=== PATIENT | male | born 1960 | race Caucasian/White ===

== ENCOUNTER 2017-08-15 14:16 | Emergency (ER) | payer BC ==
[2017-08-15] MEDS ORDERED: Lidocaine 1% 20 ML MDV INJECT ONE (16:03)
[2017-08-15] MEDS ORDERED: ceFAZolin 1 GM Vial IM ONE (16:03)
[2017-08-15] MEDS ORDERED: Diphtheria,Pertussis(Acell),Tetanus Vaccine 0.5 ML SDV IM ONE (16:04)
--- NOTE | 2017-08-15 16:07 | EDM.PDOC ---
ED HPI GENERAL MEDICAL PROBLEM - General Chief Complaint: Laceration Stated Complaint: RIGHT HAND PINKY LAC Time Seen by Provider: 08/15/17 15:45 Source of Information: Reports: Patient History Limitations: Reports: No Limitations - History of Present Illness INITIAL COMMENTS - FREE TEXT/NARRATIVE: Patient is a 57-year-old male presents ED complaining of a laceration to the distal tip of the right fifth finger. This occurred last night approximately 8: 00. Patient was attempting remove a hobble on a cow in with doing so the cow took off causing his finger to get caught in the hobble injuring the distal tip. It appears the distal tip has been pushed out in front of the nail. Pain is localized. Tetanus status up-to-date. He denies any injury to remaining fingers, hand, wrist. He offers no additional complaints. He is a type II diabetic with uncontrolled blood sugars. - Related Data Allergies Allergy/AdvReac Type Severity Reaction Status Date / Time No Known Allergies Allergy Verified 08/15/17 14:38 Home Meds: Home Meds . [Unable to Verify Home Med List] 08/15/17 [History] Past Medical History Cardiovascular History: Reports: High Cholesterol Endocrine/Metabolic History: Reports: Diabetes, Type II Social & Family History - Family History Family Medical History: Noncontributory - Tobacco Use Smoking Status *Q: Never Smoker - Alcohol Use Days Per Week of Alcohol Use: 7 Number of Drinks Per Day: 2 Total Drinks Per Week: 14 - Recreational Drug Use Recreational Drug Use: No ED ROS GENERAL - Review of Systems Review Of Systems: ROS reveals no pertinent complaints other than HPI. ED EXAM, SKIN/RASH Exam: See Below Exam Limited By: No Limitations General Appearance: Alert, WD/WN, No Apparent Distress Ears: Hearing Grossly Normal Nose: Normal Inspection Throat/Mouth: Normal Voice, No Airway Compromise Neck: Normal Inspection, Supple Respiratory/Chest: No Respiratory Distress, No Accessory Muscle Use Cardiovascular: Normal Peripheral Pulses, Regular Rate, Rhythm Peripheral Pulses: 4+: Radial (R) Extremities: Other (Fingers been soaking for the past 1.5 hours. Pale to the distal tip with macerated skin. Nailbed is intact. Portion of the soft tissue on the palmar side is protruding out from the nailbed. It appears the soft tissue has avulsed from the palmar aspect. He has full flexion-extension of all joints. No sensory deficits.) Neurological: Alert, Oriented, CN II-XII Intact, Normal Cognition, No Motor/ Sensory Deficits Psychiatric: Normal Affect, Normal Mood ED SKIN PROCEDURES - Laceration/Wound Repair Right Finger Lac/Wound length In cm: 7 Appearance: Subcutaneous, Mildly Contaminated Distal NVT: Neuro & Vascular Intact, No Tendon Injury Anesthetic Type: Digital Local Anesthesia - Lidocaine (Xylocaine): 1% Plain Local Anesthetic Volume: Other (8) Skin Prep: Chlorhexidine (Hibiciens), Saline, Sterile Drape Saline Irrigation (cc's): 25 Exploration/Debridement/Repair: Wound Explored, In a Bloodless Field, Explored to Base, Moderate Debridement, Foreign Material Removed, Wound Margins Revised, Multiple Flaps Aligned Closed with: Sutures Suture Size: other (4.0 and 5.0 sutures) # of Sutures: 10 Suture Type: Prolene, Interrupted, Simple Drain Placement: No Sterile Dressing Applied: Nurse Tetanus Status Addressed: Yes Complications: No Course - Vital Signs Last Recorded V/S: Last Vital Signs Temp 98.3 F 08/15/17 14:35 Pulse 85 08/15/17 14:35 Resp 16 08/15/17 14:35 BP 138/65 08/15/17 14:35 Pulse Ox 96 08/15/17 14:35 - Orders/Labs/Meds Orders: Active Orders 24 hr Category Date Time Status Vaccines to be Administered [RC] PER UNIT ROUTINE Care 08/15/17 16:04 Active Meds: Medications Discontinued Medications Generic Name Dose Route Start Last Admin Trade Name Freq PRN Reason Stop Dose Admin Cefazolin Sodium 1 gm 08/15/17 16:03 08/15/17 16:21 Ancef IM 08/15/17 16:04 1 gm ONETIME ONE Administration Diphtheria/Tetanus/Acell Pertussis 0.5 ml 08/15/17 16:04 08/15/17 16:27 Adacel IM 08/15/17 16:05 0.5 ml .ONCE ONE Administration Doxycycline Hyclate 100 mg 08/15/17 16:31 08/15/17 17:14 Vibramycin PO 08/15/17 16:32 100 mg ONETIME ONE Administration Lidocaine HCl 20 ml 08/15/17 16:03 Xylocaine 1% INJECT 08/15/17 16:04 ONETIME ONE Lidocaine HCl Confirm 08/15/17 17:08 08/15/17 17:15 Xylocaine 1% Administered 08/15/17 17:09 50 ml Dose Administration 50 ml .ROUTE .[facility] ONE - Re-Assessments/Exams Free Text/Narrative Re-Assessment/Exam: I ordered x-ray of the right pinky finger, Adacel IM, Ancef 1 g IM, and lidocaine 1%. X-ray of the finger reviewed with Dr. Urban with no acute bony abnormalities. Suggested closure by primary intentions. Suggested changing to doxycycline PO for 14 days. Due to delayed closure patient is at risk of infection. Ordered doxycycline 100mg PO. I did have look at after cleaning to ensure closing would be appropriate. He agrees to closing would be appropriate. Skin flap is pink with good blood flow. All clots removed with bleeding present. Laceration closed with no complications. I did have a difficult time in closing the laceration along the proximal border since sutures were pulling through. This was involving the epidermis layer only. all areas with laceration extending into the subcutaneous tissue have been closed with sutures. Sterile dressing applied per nursing with splint. Will discharge home with instructions as provided. Departure - Departure Time of Disposition: 18:10 Disposition: Home, Self-Care 01 Condition: Good Clinical Impression: Laceration of finger with delay in treatment Qualifiers: Encounter type: initial encounter Qualified Code(s): S61.219A - Laceration without foreign body of unspecified finger without damage to nail, initial encounter - Discharge Information Instructions: Laceration Care, Adult, Wound Care, Adult, Stitches, [place], or Adhesive Wound Closure, [id number], Sutured Wound Care, [id number] Referrals: Geoff Hendrix MD [Primary Care Provider] - Forms: ED Department Discharge Additional Instructions: Cleanse site twice daily with soap and water, pat dry, reapply triple antibiotic dressing, and dressing. Wear the splint until sutures are removed in 14 days. Take the full course of keflex as prescribed. Leave dressing in place until tomorrow afternoon. Keep laceration clean and dry. Do not soak the wound. Return to the [facility] to have sutures removed. Return to the ED if you develop any new or worsening symptoms. - My Orders Last 24 Hours: My Active Orders 08/15/17 16:04 Vaccines to be Administered [RC] PER UNIT ROUTINE - Assessment/Plan Last 24 Hours: My Active Orders 08/15/17 16:04 Vaccines to be Administered [RC] PER UNIT ROUTINE
[2017-08-15] MEDS ORDERED: Doxycycline 100 MG Cap PO ONE (16:31)
[2017-08-15] MEDS ORDERED: Lidocaine 1% 50 ML MDV ONE (17:08)
--- NOTE | 2017-08-16 08:36 | CR ---
Right fifth finger: Four views of the right fifth finger were obtained. Comparison: No prior study. Soft tissue injury is seen distally. Minimal fracture is noted within the distal tuft of the distal phalanx. No additional bony abnormality is seen. Impression: 1. Distal soft tissue injury with minimal fracture involving the distal tuft of the distal phalanx. Diagnostic code #3
== END 2017-08-15 18:26 | disposition home or self-care (01) ==
LOC: JD.ED 14:16
DX: S61.216A Laceration without foreign body of right little finger without damage to nail, initial encounter (principal); W23.0XXA Caught, crushed, jammed, or pinched between moving objects, initial encounter; Z23 Encounter for immunization
CPT/HCPCS: 12002; 73140; 90471; 90715; 96372; 99283; A9270; J0690

== ENCOUNTER 2021-04-18 10:09 | Emergency (ER) | payer BC | END 2021-04-18 13:08 | disposition EXP | LOC: JD.ED 10:09 | DX: I46.9 Cardiac arrest, cause unspecified (principal); E78.00 Pure hypercholesterolemia, unspecified; E11.9 Type 2 diabetes mellitus without complications | CPT/HCPCS: 31500; 92950; 99285; 99285-25 ==